=== PATIENT | male | born 1955 | race Caucasian/White ===

== ENCOUNTER 2017-10-10 08:17 | Outpatient (CLI) | payer BC ==
[2017-10-10 09:45] LABS: Hemoglobin 15.3 g/dL (14.0-18.0); Mean Corpuscular HGB CONC 32.6 g/dL (32.0-36.0); Mean Corpuscular Hemoglobin 28.7 pg (27.0-31.0); Mean Platelet Volume 8.5 fL (7.4-10.4); Platelet Count 298 thou/uL (130-400); Red Blood Cell (RBC) Count 5.32 mill/uL (4.70-6.10); White Blood Cell (WBC) Count 8.3 thou/uL (4.8-10.8)
[2017-10-10 10:04] LABS: Anion Gap 10 mmol/L (10-20); BUN (Urea Nitrogen) 25 mg/dL (8.4-25.7); Calc. Creatinine Clearance 0 mL/min (70-130); Calcium 9.5 mg/dL (7.8-10.44); Carbon Dioxide 27 mmol/L (23-31); Chloride 105 mmol/L (98-107); Estimated GFR-MDRD 58; Glucose 216 mg/dL (80-115); Potassium 4.8 mmol/L (3.5-5.1); Sodium 137 mmol/L (136-145)
[2017-10-10 10:27] LABS: PTT 35.2 SEC (22.9-36.1); Prothrombin Time 13.7 SEC (12.0-14.7)
--- NOTE | 2017-10-10 23:49 | EKG ---
Test Reason : Blood Pressure : / mmHG Vent. Rate : 077 BPM Atrial Rate : 077 BPM P-R Int : 190 ms QRS Dur : 102 ms QT Int : 380 ms P-R-T Axes : 032 004 021 degrees QTc Int : 430 ms Normal sinus rhythm Normal ECG When compared with ECG of 30-MAY-2012 07:29, No significant change was found Confirmed by DR. Ashlyn SHOEMAKER MD ([id number]) on 10/10/2017 11:48:53 PM Referred By: STALIN Confirmed By:DR. Ashlyn SHOEMAKER MD
== END 2017-10-10 08:18 | disposition home or self-care (01) ==
LOC: LABBT 08:17
PROVIDERS: ATTEND Neurological Surgery
DX: Z01.818 Encounter for other preprocedural examination (principal)
CPT/HCPCS: 80048; 85027; 85610; 85730; 93005; 93010

== ENCOUNTER → 2017-10-18 | Day surgery (SDC) | payer BC ==
[2017-10-10 08:42] VITALS: BMI 36.3
[~2017-10-18] MED LIST: CEFAZOLIN/Water 2 GM/20 ML SYRINGE ONE; Heparin 10,000 UNITS/1 ML VIAL ONE; Iopamidol 370 76% 100 ML VIAL ONE; Lidocaine 1% (PF) 30 ML VIAL ONE
--- NOTE | 2017-12-15 16:16 | CCL ---
RADIOLOGY PROCEDURE NOTE: Date: 10/18/17 SURGEON: Sarkis Kitchen M.D. [employer] INSPECTOR: None. INDICATION: Cervical spine hardware failure. Questionable vertebral artery injury. PROCEDURE: Cerebral angiogram. ANESTHESIA: Local. TECHNIQUE: The patient was brought into the angiogram suite and placed on the table in the supine position. Both groins were prepped and draped in the usual sterile fashion. 1% lidocaine was injected into the righ t groin. A 5 [place] Micropuncture set was then used to gain access to the right common femoral artery . Using the Seldinger technique, the needle was removed and a 5 [place] sheath was placed. A 5 [place] diagnostic catheter passed over a [employer] guidewire and was then advanced into the aortic arch where the left vertebral was selectively catheterized. An AP and lateral angiogram was then performed. Vernon russo placed the catheter within the right vertebral artery, where again an AP and lateral angiogram wa s performed. The catheters were then removed. Hemostasis was maintained with manual compression. The patient was not anticoagulated during the procedure. IMPRESSION: The patient underwent successful two vessel angiography of the left and the right vertebral artery. L eft vertebral artery reveals normal filling into the posterior circulation without any obvious deviat ion or evidence for injury from the screws within the lateral masses on that side. 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 Again, there is no evidence for injury to the vertebral art rachel from the lateral mass screws on the side of the right.
== END ==
LOC: CCL 07:10
PROVIDERS: ATTEND Neurological Surgery
PROC: B31 Imaging, Upper Arteries, Fluoroscopy (ICD-10-PCS; principal; 2017-10-18)
DX: T85.698A Other mechanical complication of other specified internal prosthetic devices, implants and grafts, initial encounter (principal); M48.02 Spinal stenosis, cervical region; B99.9 Unspecified infectious disease; E11.9 Type 2 diabetes mellitus without complications; I10 Essential (primary) hypertension; Z79.82 Long term (current) use of aspirin; Z79.899 Other long term (current) drug therapy; Z88.5 Allergy status to narcotic agent
CPT/HCPCS: 36217; 36225; J1644; J2001